=== PATIENT | male | born 1990 | race Caucasian/White ===

== ENCOUNTER 2019-12-11 16:49 | Emergency (ER) | payer OTHER ==
[~2019-12-11] VITALS: Ht 177.8 cm; Wt 81.7 kg
[~2019-12-11 16:49] MED LIST: AMOX500 PO; Antivert25 MG PO; BENADRYL; CEPH500 PO; CODACE30 PO; HYDACE5 PO; INCARCERATION; METHYLPHENIDATE 36 MG; NAPR500 PO; Norco 5-325 Ta1 EACH PO; OXYACE5T PO; PRED10 PO; PRED20 PO; PROACE100 PO; Percocet 5-3251 EACH PO; QUET25; RXCODACET PO; RXPROACE PO; RXTRAM50 PO; SULTRIDS PO; Silvadene20 GM TOP; TRAM50 PO; Vibramycin100 MG PO
[2019-12-11] MEDS ORDERED: SUBOXONE 8 MG-1 EACH SL (17:03)
[2019-12-11] MEDS ORDERED: MELATONIN5 M1 PO (18:01)
[2019-12-11] MEDS ORDERED: Triamcinolone A15 GM TOP (18:01)
[2019-12-11] MEDS ORDERED: ZYRTEC10 M2 PO (18:01)
== END 2019-12-11 18:20 | disposition home or self-care (01) ==
LOC: ER 16:49
DX: L30.9 Dermatitis, unspecified (principal); F17.200 Nicotine dependence, unspecified, uncomplicated; Z79.899 Other long term (current) drug therapy
CPT/HCPCS: 99282

== ENCOUNTER 2019-12-20 18:12 | Emergency (ER) | payer OTHER ==
[~2019-12-20] VITALS: Ht 177.8 cm; Wt 81.7 kg
[~2019-12-20 18:12] MED LIST changes: +MELATONIN5 M1 PO; +SUBOXONE 8 MG-1 EACH SL; +Triamcinolone A15 GM TOP; +ZYRTEC10 M2 PO
== END 2019-12-20 19:42 | disposition home or self-care (01) ==
LOC: ER 18:12
DX: M79.5 Residual foreign body in soft tissue (principal)
CPT/HCPCS: 73070; 99283-25